=== PATIENT | female | born 2000 | race Caucasian/White ===

== ENCOUNTER 2018-05-27 22:55 | Emergency (ER) | payer SELFPAY ==
[~2018-05-27] VITALS: Ht 162.6 cm; Wt 90.9 kg
[2018-05-27 23:02] VITALS: BP 146/87; TEMP 98.7
[2018-05-28] MEDS ORDERED: PREDNISONE20 MG PO (00:34)
[2018-05-28] MEDS ORDERED: AMOXICILLIN 8751 TAB PO (00:34)
[2018-05-28 00:43] VITALS: PULSE 50
== END 2018-05-28 00:42 | disposition home or self-care (01) ==
LOC: COL.ER 22:55
DX: H66.92 Otitis media, unspecified, left ear (principal); J40 Bronchitis, not specified as acute or chronic
CPT/HCPCS: J7512